=== PATIENT | female | born 1990 | race Caucasian/White ===

== ENCOUNTER 2017-09-15 10:11 | Emergency (ER) | payer MEDICAID ==
[~2017-09-15] VITALS: Ht 167.6 cm; Wt 71.8 kg
[2017-09-15] MEDS ORDERED: DEXAMETHASONE 4 MG TABLET PO ONE (11:00)
[2017-09-15] MEDS ORDERED: LORATADINE 10 MG TABLET PO ONE (11:00)
[2017-09-15 11:58] VITALS: BP 143/79
== END 2017-09-15 12:10 | disposition home or self-care (01) ==
LOC: EMS 10:13
DX: J06.9 Acute upper respiratory infection, unspecified (principal)
CPT/HCPCS: 99283; J8540